=== PATIENT | male | born 1960 | race Caucasian/White ===

== ENCOUNTER 2019-02-11 12:00 | Emergency (ER) | payer OTHER ==
[~2019-02-11] VITALS: Ht 175.3 cm; Wt 73.5 kg
[2019-02-11] MEDS ORDERED: FLEXERIL PO (13:08)
[2019-02-11 13:29] VITALS: BP 129/75
== END 2019-02-11 13:30 | disposition home or self-care (01) ==
LOC: M.ERS 12:00
DX: S86.811A Strain of other muscle(s) and tendon(s) at lower leg level, right leg, initial encounter (principal); V89.2XXA Person injured in unspecified motor-vehicle accident, traffic, initial encounter; Y92.89 Other specified places as the place of occurrence of the external cause; Y93.89 Activity, other specified; Y99.8 Other external cause status